=== PATIENT | female | born 1990 | race Native Hawaiian/Other Pacific Islander ===

== ENCOUNTER 2021-01-07 17:31 | Emergency (ER) | payer OTHER ==
[~2021-01-07] VITALS: Ht 154.9 cm; Wt 64.0 kg
[2021-01-07 19:45] VITALS: BP 110/78; TEMP 98.2
== END 2021-01-07 19:45 | disposition home or self-care (01) ==
LOC: ED 17:31
DX: N13.2 Hydronephrosis with renal and ureteral calculous obstruction (principal); Z87.442 Personal history of urinary calculi
CPT/HCPCS: 96360; 96375; 99284; J2270; J2405